=== PATIENT | female | born 1975 | race Caucasian/White ===

== ENCOUNTER 2019-07-23 06:20 | Inpatient (IN) | payer OTHER ==
[2019-07-23 07:24] LABS: Urine Appearance Cloudy; Urine Bacteria Absent (Absent); Urine Bilirubin Negative (Negative); Urine Blood 3+ (Negative); Urine Color Amber; Urine Glucose Negative (Negative); Urine Ketones Negative (Negative); Urine Nitrite Negative (Negative); Urine Protein 1+(30 mg/dL) (Negative); Urine Red Blood Cell 3+(>10/hpf) (Absent); Urine Specific Gravity 1.015 (1.010-1.030); Urine Squamous Epithelial Cell Present (Absent); Urine Urobilinogen Negative (Negative); Urine White Blood Cell Trace(0-5/hpf) (Absent)
[2019-07-23 07:31] LABS: Urine Benzodiazepine Screen None Detected (None Detect); Urine Opiates Screen None Detected (None Detect)
[2019-07-23] MEDS ORDERED: OBEPIDURAL* 250 ML EPIDURAL ONE (07:33)
[2019-07-23 07:41] LABS: Hematocrit 32 % (35-47); Hemoglobin 11.3 g/dL (12.0-16.0); Mean Corpuscular HGB Conc 35 g/dL (31-36); Mean Corpuscular Hemoglobin 30 pg (27-31); Mean Corpuscular Volume 85 fL (80-97); Mean Platelet Volume 8.1 fL (7.4-10.4); Platelet Count 172 10^3/uL (150-450); Red Blood Count 3.78 10^6 /uL (3.70-4.87); Red Cell Distribution Width 13 % (10-15); White Blood Count 7.8 10^3/uL (3.5-10.8)
[2019-07-23] MEDS ORDERED: Lactated Ringers 1000 ML Bag* 1,000 ML IV ONE ×2 (08:14→09:16)
[2019-07-23] MEDS ORDERED: Phenylephrine 40 MCG/ML SYRINGE IV PUSH PRN ×2 (08:14)
[2019-07-23] MEDS ORDERED: Famotidine TAB* 20 MG PO PRN (08:14)
[2019-07-23] MEDS ORDERED: Sodium Citrate/Citric Acid* 15 ML UDC PO PRN (08:14)
[2019-07-23] MEDS ORDERED: OBEPIDURAL* 250 ML EPIDURAL SCH (09:00)
[2019-07-23] MEDS ORDERED: Lactated Ringers 1000 ML Bag* 1,000 ML IV SCH ×3 (09:00→18:00)
[2019-07-23] MEDS ORDERED: Buffered Lidocaine 1% SYRIN* 1 ML/SYRINGE INTRADERM ONE (09:16)
--- NOTE | 2019-07-23 09:31 | HP ---
General Information - Reason for Visit Spontaneous rupture of membranes - General Information Maternal Age: 43 Grav: 4 Para: 0 SAB: 2 IEA: 1 Estimated Due Date: 08/20/19 Determined By: Early Ultrasound Gestational Age in Weeks/Days: 36 0/7 Maternal Blood Type and Rh: A Positive - Results this Serology/RPR Result: Non-Reactive Rubella Result: Immune HBsAg Result: Negative HIV Result: Negative Past Medical History Delivery History: See Records Delivery History Comment: no prior deliveries Pertinent Past Medical History: Non-Contributory Past Medical History Comment: Depression, on lexapro 20 mg daily prior to Pertinent Past Surgical History: See Records Past Surgical History Comment: D&C 2009, hernia repair Pertinent Family History: Non-Contributory - Antepartal Records Antepartal Records: Reviewed, Complicated by: - AMA age 43 at delivery , Review of Systems Constitutional: Uncomfortable CV Complaint: No Respiratory: Shortness of Breath: No Gastrointestinal: Nausea, Vomiting Genitourinary: Leaking Fluid, No Dysuria, No Bleeding Musculoskeletal: Contractions Neurological: No Headache, No Visual Changes Movement: Normal Exam Allergies/Adverse Reactions: Allergies No Known Allergies Allergy (Verified 07/23/19 07:24) B/P: 119/70, P: 87, T: 98.0 Lab Values - Entire Visit: Laboratory Tests 07/23/19 07/23/19 07/23/19 06:45 06:45 07:28 WBC 7.8 RBC 3.78 Hgb 11.3 L Hct 32 L MCV 85 MCH 30 MCHC 35 RDW 13 Plt Count 172 MPV 8.1 Urine Color Krista Urine Appearance Cloudy Urine pH 6.0 Ur Specific [place] 1.015 Urine Protein 1+(30 mg/dl) A Urine Ketones Negative Urine Blood 3+ A Urine Nitrate Negative Urine Bilirubin Negative Urine Urobilinogen Negative Ur Leukocyte Esterase Negative Urine WBC (Auto) Trace(0-5/hpf) Urine RBC (Auto) 3+(>10/hpf) A Ur Squamous Epith Cells Present A Urine Bacteria Absent Urine Glucose Negative Urine Ascorbic Acid * A Urine Opiates Screen None detected Ur Barbiturates Screen None detected Ur Phencyclidine Scrn None detected Ur Amphetamines Screen None detected U Benzodiazepines Scrn None detected Urine Cocaine Screen None detected U Cannabinoids Screen None detected Blood Type Antibody Screen 07/23/19 07:28 WBC RBC Hgb Hct MCV MCH MCHC RDW Plt Count MPV Urine Color Urine Appearance Urine pH Ur Specific [place] Urine Protein Urine Ketones Urine Blood Urine Nitrate Urine Bilirubin Urine Urobilinogen Ur Leukocyte Esterase Urine WBC (Auto) Urine RBC (Auto) Ur Squamous Epith Cells Urine Bacteria Urine Glucose Urine Ascorbic Acid Urine Opiates Screen Ur Barbiturates Screen Ur Phencyclidine Scrn Ur Amphetamines Screen U Benzodiazepines Scrn Urine Cocaine Screen U Cannabinoids Screen Blood Type A Positive Antibody Screen Negative - Measurements Height: 5 ft 6 in Weight: 153 lb Weight in lbs: 153.251899 Body Mass Index (BMI): 24.7 Pre- Weight: 127 lb Weight Gained This : 26 lbs and 0 ozs - Exam Breast: Breast Exam Deferred CVA: No CVA Tenderness Extremities: No Edema Heart: Normal Rhythm/Heart Sounds HEENT: No Significant Findings Lungs: Clear Bilaterally Reflexes: DTR 2+ Thyroid: No Thyromegaly - Abdominal Exam Abdomen Exam: Non-Tender, Fundal Height Consistent with Dates - Ultrasound/Biophysical Profile Ultrasound Status: Not Done Targeted Exam Findings See L&D Outpatient Visit Provider Note for Findings: N/A Cervical Exam: 4cm Effacement: 100% Presenting Part: Vertex Membrane Status: SROM Amniotic Fluid Evaluation: Gross Rupture Bleeding/Discharge: None EFM Findings - External Monitor Findings Baseline Heart Rate: 135 External Monitor Findings: Accelerations Present, No Pattern of Variable or Late Decelerations, Variability Moderate Contractions: Regular, Moderate, 45-90 Seconds Contraction Frequency: 2-4 Assessment/Plan - Assessment A: IUP at 36 0/7 weeks Category I FHR, no evidence of metabolic acidemia Active labor SROM P: Admit to inpatient, pt comfortable s/p epidural placement Reassess PRN Anticipate SVB - Obstetrical Risk Factors Obstetrical Risk Factors: - Plan Plan: Admit - Anticipate Vaginal Delivery - Date/Time of Admission Date of Admission: 07/23/19 Time of Admission: 07:00
[2019-07-23] MEDS ORDERED: Metoclopramide IV* 5 MG/ML 2 ML VIAL ONE (11:47)
[2019-07-23] MEDS ORDERED: Ketorolac INJ* 30 MG/ML 1 ML VIAL ONE (11:47)
[2019-07-23] MEDS ORDERED: Acetaminophen IV 1GM/100ML * 0 ML ONE (11:47)
[2019-07-23] MEDS ORDERED: Ondansetron INJ* 2 MG/ML VIAL ONE (11:47)
[2019-07-23] MEDS ORDERED: Dexamethasone IV* 4 MG/ML 1 ML (4 MG) ONE (11:47)
[2019-07-23] MEDS ORDERED: Sugammadex * 200 MG/2 ML VIAL IV PUSH ONE (11:55)
[2019-07-23] MEDS ORDERED: Oxytocin in LR* 20 UNITS/1,000 ML BAG IVPB ONE (12:13)
--- NOTE | 2019-07-23 12:24 | PN ---
Progress Note - Progress Note Date of Service: 07/23/19 Note: S: Still feeling comfortable s/p CEI placement. Has been napping on/off since 0800 O: B/P: 105/71, P: 89, R: 20, T: 98.4 FHR: baseline 135, moderate variability, + accelerations, no decelerations UCs: q 3-4 min, strong to palpation VE: 10/100/0. Clear fluid. Significant vulvar edema A: IUP at 36 0/7 weeks Category I FHR, no evidence of metabolic acidemia P: Attempted a few trial pushes, pt with no pelvic sensation and not able to push effectively Will labor down for 30-60 minutes, resume pushing Anticipate SVB
[2019-07-23] MEDS ORDERED: Glycerin ADULT SUPP PR PRN (17:54)
[2019-07-23] MEDS ORDERED: Acetaminophen TAB* 325 MG PO PRN (17:54)
[2019-07-23] MEDS ORDERED: Witch Hazel PAD* JAR TOPICAL PRN (17:54)
[2019-07-23] MEDS ORDERED: Ibuprofen TAB* 600 MG PO PRN (17:54)
[2019-07-23] MEDS ORDERED: Witch Hazel PAD* JAR ONE (17:56)
[2019-07-23] MEDS ORDERED: Dibucaine 1% 28.35 GM TUBE ONE (17:56)
[2019-07-23] MEDS ORDERED: Oxytocin in LR* 20 UNITS/1,000 ML BAG IVPB SCH (18:00)
[2019-07-23] MEDS ORDERED: Misoprostol TAB* 200 MCG PR ONE (18:00)
[2019-07-23] MEDS ORDERED: Misoprostol TAB* 200 MCG ONE (18:10)
[2019-07-23] MEDS ORDERED: Lidocaine 1% INJ* 10 MG/ML 30 ML SDV ONE (18:10)
--- NOTE | 2019-07-23 19:07 | PROCNOTE ---
[facility] OB: Delivery Note - Delivery A Date of : 07/23/19 Time of : 17:46 [place] Sex: Male Weight at : 6 lb 9.293 oz Score 1 Minute: 8 Score 5 Minutes: 8 Gestational Age in Weeks and Days at Delivery: 36 Weeks and 0 Days Delivery Method: Spontaneous Vaginal Labor: Spontaneous Did Patient attempt ?: N/A, No Previous Amniotic Fluid: Clear Estimated Blood Loss: 700 Anesthesia/Analgesia: CEI for Labor Anesthesia Comment: Dr. Waddell Delivered By: Jeannie Sellers - Nursery Level of Nursery: Regular/Bedside - Perineum Perineal Injury: 1st Degree Perineal Injury Comment: and right sublabial Perineal Repair: By Delivering Practioner - with 3-0 vicryl rapide - Events Delivery Events of Note: Pitocin During Labor, Supplemental O2 to Mother, Post- Bleeding - Meds Given, Pushed > 3 Hours - Risk for Falls Delivered OB Patient- Risk for Falls: Heavy Bleeding Fall Risk: Patient is at High Risk for Falls - Additional Delivery Notes Additional Delivery Notes: experienced SROM at 0500 to clear fluid. Received CEI per preference with good relief and progressed to complete and complete. Began pushing with poor maternal effort at 1341, coached through pushing with slow descent. IV pitocin augmentation for inadequate contraction pattern began at 1640, consult with Dr. Niño. Dr. Niño in room to assist in coaching pt through pushing. Slow, controlled delivery of infant head CHIQUITA at 1746, shoulders followed without difficulty. Compound left hand. Male delivered to maternal abdomen, HR>110, vigorous with spontaneous cry. Apgars 8 and 8. Cord doubly clamped and cut by infants father once pulsations ceased. Pitocin increased to 150 cc/hr, placenta delivered via xavier at 1749, appeared intact. Fundus boggy, pitocin increased to 250 cc/hr. Brisk bleeding continued, 800 mcg rectal cytotec given at 1800. Perineum and vagina carefully inspected, 1st degree perineal laceration and right labial extension noted, repaired as above under lidocaine infiltration. Mother and stable at time of note, initiated. weight 6 lb 9 oz, EBL = 700 cc.
--- NOTE | 2019-07-23 19:56 | PN ---
Progress Note - Progress Note Date of Service: 07/23/19 Note: Notified by RN that pt of Sarika Sweet CM is on the unit and in labor at 36 weeks Category I tracing - no evidence of metabolic acidemia Regular contractions - q2-4 minutes VE: /-1 Awaiting full record from [facility] Per Pt, uncomplicated course - AMA Admit to L&D, epidural now Report given to William Sellers who will assume care at 0800.
[2019-07-23] MEDS ORDERED: Ammonia Inhalant* 1 EA AMP ONE (20:39)
[2019-07-23] MEDS: Docusate CAP* 100 MG PO SCH (21:00)
[2019-07-23] MEDS ORDERED: Simethicone TAB* 80 MG TAB.CHEW PO SCH (21:00)
[2019-07-24 06:22] LABS: ABS Lymphocytes 1.4 10^3/ul (1.0-4.8); ABS Monocytes 1.1 10^3/ul (0-0.8); ABS Neutrophils 11.5 10^3/ul (1.5-7.7); Eosinophil % 0.1 %; Hematocrit 28 % (35-47); Hemoglobin 9.4 g/dL (12.0-16.0); Mean Corpuscular HGB Conc 34 g/dL (31-36); Mean Corpuscular Hemoglobin 29 pg (27-31); Mean Corpuscular Volume 85 fL (80-97); Mean Platelet Volume 7.8 fL (7.4-10.4); Platelet Count 167 10^3/uL (150-450); Red Blood Count 3.23 10^6 /uL (3.70-4.87); Red Cell Distribution Width 13 % (10-15)
[2019-07-24] MEDS: Ferrous Gluconate TAB* 324 MG TAB PO SCH ×2 (08:03→20:31)
[2019-07-24] MEDS: Docusate CAP* 100 MG PO SCH ×3 (08:03→20:31)
[2019-07-24] MEDS: Dibucaine 1% 28.35 GM TUBE PR PRN (20:34)
[2019-07-25 07:27] VITALS: BP 120/70
[2019-07-25] MEDS: Docusate CAP* 100 MG PO SCH ×2 (08:20→12:09)
[2019-07-25] MEDS: Ferrous Gluconate TAB* 324 MG TAB PO SCH (08:20)
[2019-07-25] MEDS: Dibucaine 1% 28.35 GM TUBE PR PRN (12:09)
== END 2019-07-25 12:45 | disposition home or self-care (01) | DRG 560 ==
LOC: MCHOBOUT 06:20 → MCHOB 06:33
PROVIDERS: ADMIT Midwife; ATTEND Midwife
PROC: 10E0XZZ Delivery of Products of Conception, External Approach (ICD-10-PCS; principal; 2019-07-23)
PROC: 0HQ9XZZ Repair Perineum Skin, External Approach (ICD-10-PCS; 2019-07-23)
DX: O42.019 Preterm premature rupture of membranes, onset of labor within 24 hours of rupture, unspecified trimester (principal); O72.1 Other immediate postpartum hemorrhage; Z37.0 Single live birth; D62 Acute posthemorrhagic anemia; O99.344 Other mental disorders complicating childbirth; F32.9 Major depressive disorder, single episode, unspecified; O70.0 First degree perineal laceration during delivery; O32.6XX0 Maternal care for compound presentation, not applicable or unspecified; O90.81 Anemia of the puerperium; Z3A.36 36 weeks gestation of pregnancy
CPT/HCPCS: 36415; 80307; 81003; 81015; 85025; 85027; 86850; 86900; 86901; 87086; A9270-GY; G0480; J1100; J1885; J2405; J2765

== ENCOUNTER 2019-09-06 10:19 | Emergency (ER) | payer OTHER ==
--- NOTE | 2019-09-06 10:29 | ED ---
Psychiatric Complaint - HPI Summary HPI Summary: 43 year old F presenting to [facility] with a chief complaint of increased depression. Patient reports that she is anxious and has thought about hurting herself intermittently in the past. Pt with a history of dpressive disorder - has never been hospitalized. Pt take Lexapro and Ativan. Pt states she moved to [place] with her and unexpectedly became . Pt is 6 weeks post and states she feels she is struggling. Pt without SI/HI thoughts. No thoughts to injury baby - good support from . states he mother is here for 3 months and this is contributing to stress. Is not breast feeding but feels she is bonding with child. No plan to self harm. No pain. 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 She is followed by a psychiatrist in [place] - had telemed visit last week. Patient's medication reviewed this visit. Allergy list reviewed. - History Of Current Complaint Time Seen by Provider: 09/06/19 10:23 Hx Obtained From: Patient ?: No Onset/Duration: Still Present Timing: Constant Aggravating Factor(s): Nothing Alleviating Factor(s): Nothing Has Homicidal: Denies: Thoughts Recent Stressor(s): Moving, - Allergies/Home Medications Allergies/Adverse Reactions: Allergies Allergy/AdvReac Type Severity Reaction Status Date / Time No Known Allergies Allergy Verified 07/23/19 07:24 Home Medications: Home Medications Escitalopram * [Lexapro *] 15 mg PO DAILY 07/23/19 [History Confirmed 09/06/19] Vitamin TAB* 1 tab PO DAILY 07/23/19 [History Confirmed 09/06/19] Ferrous Gluconate TAB* [Fergon TAB*] 324 mg PO DAILY #30 tab 07/25/19 [Rx Confirmed 09/06/19] LORazepam TAB(*) [Ativan 0.5 MG TAB (*)] 0.5 mg PO .1-3X/DAY PRN 09/06/19 [ History Confirmed 09/06/19] LoraTADine TAB(NF) [Claritin 10 MG TAB(NF)] 10 mg PO DAILY PRN 09/06/19 [ History Confirmed 09/06/19] Multivitamins/Minerals TAB* [Theragran/minerals TAB*] 1 tab PO DAILY 09/06/19 [ History Confirmed 09/06/19] PMH/Surg Hx/FS Hx/Imm Hx Previously Healthy: Yes Endocrine/Hematology History: Reports: Hx Thyroid Disease Psychiatric History: Reports: Hx Anxiety - on lexapro, Hx Depression - Surgical History Surgical History: Yes Surgery Procedure, Year, and Place: Hernia repair Infectious Disease History: No Infectious Disease History: Denies: Traveled Outside the [place] in Last 30 Days - Family History Known Family History: Positive: Diabetes - Social History Alcohol Use: None Hx Substance Use: No Substance Use Type: Reports: None Hx Tobacco Use: Yes Smoking Status (MU): Former Smoker Review of Systems Negative: Epistaxis Positive: Anxious, Depressed - All Other Systems Reviewed And Are Negative: Yes Physical Exam - Summary Physical Exam Summary: Vital Signs Reviewed: Yes A+Ox3, no distresd, appropriate, quiet Eyes: Conjunctiva Clear, KEE. EOM intact and full ENT: Hearing grossly normal TM x 2 clear, mm Neck: Positive: Supple Respiratory: Positive: No respiratory distress, No accessory muscle use + CTA throughout no w/r Cardiovascular: RRR nl s1, s2 no m/r CBT <2 sec abd soft + BS nt/nd no guarding, no distension Musculoskeletal Exam: RICHARDS x 4 without difficulty Strength Intact, ROM Intact Neurological: Positive: Alert, + sensation throughout Psychological: Positive: Normal Response To examiner Skin: Positive: no rash, no ecchymosis Triage Information Reviewed: Yes Vital Signs On Initial Exam: Initial Vitals Temp Pulse Resp BP Pulse Ox 97.5 F 67 18 139/90 99 09/06/19 10:21 09/06/19 10:21 09/06/19 10:21 09/06/19 10:21 09/06/19 10:21 Vital Signs Reviewed: Yes Procedures - Sedation Patient Received Moderate/Deep Sedation with Procedure: No Diagnostics - Vital Signs Vital Signs Temp Pulse Resp BP Pulse Ox 09/06/19 10:21 97.5 F 67 18 139/90 99 - Laboratory Result Diagrams: 09/06/19 10:32 09/06/19 10:32 Lab Statement: Any lab studies that have been ordered have been reviewed, and results considered in the medical decision making process. Re-Evaluation - Re-Evaluation First Eval Re-Evaluation Time: 12:40 Comment: The patient will be discharged by the psychiatrist. Pt comfortable and in agreement with plan Course/Dx - Course Course Of Treatment: Patient is 6 weeks . Patient with a history of major depressive disorder. Patient revealed to her [employer] doctor today she's been struggling little bit. Patient was stressors related to recent as well as her mother's care for 3 months. Patient without any active or current homicidal suicidal ideations. Patient does have a psychiatrist as possible. On exam vital signs are stable. Patient is appropriate however somewhat quiet. We'll last mental health to see patient will check labs. - Differential Dx/Clinical Impression Provider Diagnosis: Unspecified mood [affective] disorder Discharge ED - Sign-Out/Discharge Documenting (check all that apply): Patient Departure - Discharge - Discharge Plan Condition: Stable Disposition: HOME Referrals: Cole Lea MD [Primary Care Provider] - - Billing Disposition and Condition Condition: STABLE Disposition: Home - Attestation Statements Document Initiated by Scribe: Yes Documenting Scribe: Marixa Loving Provider For Whom Scribe is Documenting (Include Credential): Opal Vasques MD Scribe Attestation: Marixa Dewitt scribed for Opal Vasques MD on 09/06/19 at 1301. Scribe Documentation Reviewed: Yes Provider Attestation: The documentation as recorded by the Marixa chavarria accurately reflects the service I personally performed and the decisions made by , Opal Vasques MD Status of Scribe Document: Viewed
[2019-09-06 10:40] LABS: ABS Eosinophils 0.1 10^3/ul (0-0.6); ABS Lymphocytes 1.9 10^3/ul (1.0-4.8); ABS Monocytes 0.4 10^3/ul (0-0.8); ABS Neutrophils 2.4 10^3/ul (1.5-7.7); Eosinophil % 1.2 %; Hematocrit 40 % (35-47); Hemoglobin 13.8 g/dL (12.0-16.0); Lymphocyte % 40.1 %; Mean Corpuscular HGB Conc 34 g/dL (31-36); Mean Corpuscular Hemoglobin 29 pg (27-31); Mean Corpuscular Volume 83 fL (80-97); Mean Platelet Volume 7.5 fL (7.4-10.4); Platelet Count 271 10^3/uL (150-450); Red Blood Count 4.85 10^6 /uL (3.70-4.87); Red Cell Distribution Width 14 % (10-15); White Blood Count 4.9 10^3/uL (3.5-10.8)
[2019-09-06 11:00] LABS: Urine Appearance Clear; Urine Bilirubin Negative (Negative); Urine Blood Negative (Negative); Urine Color Yellow; Urine Glucose Negative (Negative); Urine Ketones Negative (Negative); Urine Nitrite Negative (Negative); Urine Protein Negative (Negative); Urine Specific Gravity 1.013 (1.010-1.030); Urine Urobilinogen Negative (Negative)
[2019-09-06 11:02] LABS: ALT 24 U/L (7-52); AST 33 U/L (13-39); Albumin 4.4 g/dL (3.2-5.2); Albumin/Globulin Ratio 1.3 (1-3); Alkaline Phosphatase 64 U/L (34-104); Anion Gap 7 mmol/L (2-11); BUN/Creatinine Ratio 15.9 (8-20); Blood Urea Nitrogen 10 mg/dL (6-24); CO2 Carbon Dioxide 28 mmol/L (22-32); Calcium 9.5 mg/dL (8.6-10.3); Chloride 104 mmol/L (101-111); EGFR African American 124.8 (>60); EGFR Non-African American 103.1 (>60); Globulin 3.3 g/dL (2-4); Glucose 94 mg/dL (70-100); Potassium 3.8 mmol/L (3.5-5.0); Sodium 139 mmol/L (135-145); Total Protein 7.7 g/dL (6.4-8.9)
[2019-09-06 11:14] LABS: Acetaminophen < 15 mcg/mL; Alcohol < 10 mg/dL (<10); Salicylate < 2.50 mg/dL (<30)
[2019-09-06 11:15] LABS: Urine Benzodiazepine Screen None Detected (None Detect); Urine Opiates Screen None Detected (None Detect)
[2019-09-06 11:30] LABS: TSH (Thyroid Stimulating Horm) 2.07 mcIU/mL (0.34-5.60)
[2019-09-06 13:14] VITALS: BP 130/68
--- NOTE | 2019-09-06 13:40 | CONSULT ---
Consult Consult: Neurology Inpatient Consult Note Date of service: 09/06/2019 Reason for consult: Neurology was consulted by Dr. Vasques for stroke. The history was obtained by the patient. Chief complaint: right sided weakness and numbness. History of Present Illness: Ms. Fan is a 43-year-old right-handed female with history of tobacco use who presented with right hemiparesis, slurred speech, and right sided numbness sensation. She has associated symptoms of a bifrontal, 7/10, pulsating headache that is non-radiating. She has had headaches on and off for the past three weeks. She takes anti-depressants. She is aspirin naive. She denied swallowing difficulty. 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 The patient was pumping gas last night at 1900 when she noticed the sudden onset of right hemiparesis. She also noticed a transient symptom of nausea and vertigo at 1600 on 09/06/2019 that resolved within 30 minutes. Time of onset: 1900 09/05/2019 Last known well time: 1530 09/05/2019, although her symptoms of vertigo and nausea resolved, but then she had new symptoms of right hemiparesis at 1900. Time of tPA decision: 1034 09/06/2019. Not a candidate for alteplase therapy. Consulted .today on 09/06/2019 at 10:[address] Vasques. NIHSS: 6 (mild right arm drift (1); right leg 2 some effort against gravity; 1 limb ataxia; 1 mild sensation loss; 1 mild dysarthria. Labs, Imaging and Other Diagnostics: Urine toxicology: negative IMAGING: - CT head without contrast on 09/06/2019: area of hypodensity in the left posterior limb of the internal capsule. - CTA head and neck on 09/06/2019: right vertebral artery occlusion (V4 segment) . Nonocclusive atherosclerotic disease in the right proximal subclavian artery. Past Medical History: Depression, anxiety, Family History: No family history of stroke or seizures. Social History: Smokes 1 ppd for >20 years. She denied alcohol or drug use. She has two children of which one of them has epilepsy. She is a single mother. MEDICATIONS: Escitalopram * [Lexapro *] 15 mg PO DAILY 07/23/19 [History Confirmed 09/06/19] Vitamin TAB* 1 tab PO DAILY 07/23/19 [History Confirmed 09/06/19] Ferrous Gluconate TAB* [Fergon TAB*] 324 mg PO DAILY #30 tab 07/25/19 [Rx Confirmed 09/06/19] LORazepam TAB(*) [Ativan 0.5 MG TAB (*)] 0.5 mg PO .1-3X/DAY PRN 09/06/19 [ History Confirmed 09/06/19] LoraTADine TAB(NF) [Claritin 10 MG TAB(NF)] 10 mg PO DAILY PRN 09/06/19 [ History Confirmed 09/06/19] Multivitamins/Minerals TAB* [Theragran/minerals TAB*] 1 tab PO DAILY 09/06/19 [ History Confirmed 09/06/19] Allergies No Known Allergies Allergy (Verified 07/23/19 07:24) Review of Systems: A 14-point ROS was obtained and otherwise negative except for what was mentioned in the HPI. Specifically, she denied any chest pain, shortness of breath, or palpitations. Physical Exam: Vitals: Vital Signs - 12 hr Temp Pulse Resp BP Pulse Ox 09/06/19 13:12 98 F 71 18 130/68 97 09/06/19 10:21 97.5 F 67 18 139/90 99 General: well nourished, well developed. Alert, cooperative, no apparent distress, appears stated age. Head: normocephalic, without obvious abnormality Eyes: conjunctivae/corneas clear Neck: supple, symmetrical. No carotid bruit. No lymphadenopathy. Lungs: clear to auscultation bilaterally, non-labored CV: regular rhythm, S1, S2 normal, radial pulses palpable Extremities: normal range of motion with no cyanosis. Skin: no skin lesions or lacerations Psych: affect-broad and normal mood. Easy to establish rapport. Neurological examination: Mental status: awake; alert and oriented to person, place, time, & general circumstances; Mild spastic dysarthria. Cranial nerves: I: not tested II, III, IV, : normal confrontation B/L, Pupils midrange and reactive to light , normal consensual response; extraocular muscles are intact; no ptosis; no conjugate or asymmetrical nystagmus V 1/2/3: sensation is intact on forehead, cheeks, and jaw region VII: no facial droop; facial symmetry while smiling & wrinkling of forehead; tight lid closure VIII: able to hear throughout the history process IX & X: symmetric palatal elevation XI: normal strength against resistance XII: tongue is symmetrical & midline with no atrophy or fasciculations Motor (R/L): no abnormal movements, no pronator drift. Normal bulk and tone throughout. No fasciculations. Neck extension 5. Shoulder ROM is full. Shoulder abduction 5/5. Elbow flexion 5/5, extension 5/5. Wrist flexion 4/5, extension 4/5. Finger flexion 4/5, extension 4/5, abduction 4/5. Hip flexion 4/5, abduction 4/5. Knee flexion 4/5, extension 4/5. Ankle dorsiflexion 4/5, plantarflexion 4/5. Reflexes R L Brachioradialis 2+ 2+ Biceps 2+ 2+ Triceps 2+ 2+ Patella 3+ 2+ Ankle 2+ 2+ Plantar Extensor flexor Sensation: reduce sensation to light touch and pinprick on the right side. Coordination: mild motor dysmetria finger to nose Gait & Station: unsteady gait, no ataxia. Assessment: Ms. Milla Fan is a 43-year-old right-handed female with depression and anxiety who presented to [facility] today with right hemiparesis and dysarthria. 1. Acute lacunar stroke in the lenticulostriate branches on the left. NIHSS 6. She is outside the therapeutic window for alteplase therapy. Etiology: Suspect cardio emboli. Other differential diagnosis include reversible cerebral vasoconstriction syndrome as she is taking an SSRI which increases her risk. 2. Right vertebral artery occlusion. I am concerned that this is symptomatic as she developed transient posterior circulation symptoms yesterday with vertigo , headache and nausea. She continues to have headaches. I spoke with Dr. Gutierrez from . After consulting with the patient, we agreed to transfer her to the [facility] to undergo evaluation with DSA. The vertebral artery thrombosis can lead to basilar artery occlusion; therefore, we agreed that she requires higher level of care under the neuroendovascular service at [facility]. 3. Tobacco abuse. Smoking cessation counseling was provided. Recommendations: - Aspirin 325 mg x 1 after she passes a swallow evaluation. - Transfer to [facility] - Keep her SBP greater than 140 mmHg - Activated the code LVO and the patient will be air lifted to UR. - She will need a comprehensive stroke work-up including: MRI brain with and without contrast to look for demyelinating disease given her age, TTE with PFO; if PFO is present, imaging of her pelvic and lower extremity veins is recommended. Evaluate for a hypercoagulable state, antiphospholipid syndrome if work-up is negative. DSA to assess the degree of stensis of the vertebral artery, evaluate for possible vasoconstriction rather than atherosclerotic disease, and consider intervention if needed since she is still within 24 hours of last known well time and symptom onset. Critical care time: 45 minutes. Discussed the above recommendations with Dr. Vasques and Dr. Gutierrez. Eve Hankins MD Date: 09/06/2019 Time: [id number]
== END 2019-09-06 13:12 | disposition home or self-care (01) ==
LOC: ED 10:19
DX: F39 Unspecified mood [affective] disorder (principal); F32.9 Major depressive disorder, single episode, unspecified; F41.9 Anxiety disorder, unspecified; Z87.891 Personal history of nicotine dependence; E03.9 Hypothyroidism, unspecified; Z79.899 Other long term (current) drug therapy; Z79.890 Hormone replacement therapy
CPT/HCPCS: 36415; 80053; 80307; 80320; 80329; 81003; 84443; 85025; 99285; G0480